=== PATIENT | male | born 2000 | race African-American/Black ===

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

== ENCOUNTER 2019-08-17 21:24 | Emergency (ER) | payer BC, MEDICAID ==
[~2019-08-17] VITALS: Ht 167.6 cm; Wt 68.2 kg
[~2019-08-17 21:24] MED LIST changes: -PALI1.5T2 PO; -TRAZ-218 PO; +TRAZ-251 PO
[2019-08-17] MEDS ORDERED: HYDR-3717 PO (21:45)
[2019-08-17] MEDS ORDERED: ARIP5TAB60 PO (21:45)
[2019-08-17] MEDS ORDERED: DIVA500T9 PO (21:45)
[2019-08-17 22:03] LABS: BASOPHILS % (AUTO) 0.4 % (0-1); EOSINOPHILS # (AUTO) 0.1 X10'3 (0-0.9); EOSINOPHILS % (AUTO) 0.7 % (0-6); HEMATOCRIT 49.7 % (42.0-52.0); HEMOGLOBIN 16.6 g/dl (14.0-17.9); LYMPHOCYTES % (AUTO) 23.5 % (21-51); MEAN CORPUSCULAR HEMOGLOBIN 30.6 PG (27.0-31.0); MEAN CORPUSCULAR HGB CONC 33.3 g/dL (33.0-36.5); MEAN CORPUSCULAR VOLUME 91.8 FL (78-98); MEAN PLATELET VOLUME 9.7 FL (7.4-10.4); MONOCYTES # (AUTO) 0.6 X10'3 (0-0.9); MONOCYTES % (AUTO) 7.5 % (2-12); NEUTROPHILS # (AUTO) 5.8 X10'3 (1.8-7.7); NEUTROPHILS % (AUTO) 67.9 % (42-75); PLATELET COUNT 164 X10'3 (140-440); RED BLOOD COUNT 5.41 X10'6 (4.70-6.10); RED CELL DISTRIBUTION WIDTH 13.7 % (11.5-14.5); WHITE BLOOD COUNT 8.5 X10'3 (4.5-11.0)
[2019-08-17 22:16] LABS: ALANINE AMINOTRANSFERASE 11 U/L (12-78); ALBUMIN 4.1 G/DL (3.4-5.0); ALBUMIN/GLOBULIN RATIO 1.3 (1.1-1.5); ALKALINE PHOSPHATASE 97 IU/L (20-180); ANION GAP 7 (8-16); ASPARTATE AMINO TRANSFERASE 15 U/L (10-37); BILIRUBIN,TOTAL 0.3 MG/DL (0.1-1.0); BLOOD UREA NITROGEN 12 MG/DL (7-18); BUN/CREATININE RATIO 10.8 (5.4-32.0); CALCIUM 9.1 MG/DL (8.5-10.1); CHLORIDE 109 MMOL/L (99-107); CREATININE 1.11 MG/DL (0.60-1.10); GLUCOSE 105 MG/DL (70-104); SODIUM 146 MMOL/L (135-145); TOTAL CARBON DIOXIDE 30.2 MMOL/L (24-32); TOTAL PROTEIN 7.2 G/DL (6.4-8.2); eGFR > 90 ML/MIN
[2019-08-17 22:22] LABS: ETHANOL < 0.010 GM/DL (0.0-0.010)
--- NOTE | 2019-08-17 23:00 | NUR ---
Kirk Loya-Director-[phone]
[2019-08-17 23:13] LABS: CLARITY,URINE CLEAR (Clear); COLOR,URINE YELLOW (Yellow); GLUCOSE, URINE NEGATIVE (Neg); KETONES,URINE TRACE mg/dl (Neg); LEUKOCYTE ESTERASE ,URINE NEGATIVE (Neg); NITRITES, URINE NEGATIVE (Neg); OCCULT BLOOD,URINE NEGATIVE (Neg); PROTEIN,URINE 100 mg/dl (Neg)
[2019-08-17 23:18] LABS: UA COLLECTION TYPE CLN CATCH MIDSTREAM
[2019-08-17 23:19] LABS: BACTERIA,URINE NONE SEEN /HPF (Neg); MUCUS STRANDS MANY /LPF (Neg); RBC,URINE 0-2 /HPF (0-2); SQUAMOUS EPITHELIAL CELL,UR FEW /LPF (FEW); WBC,URINE 0-4 /HPF (0-4)
[2019-08-17 23:26] LABS: URINE AMPHETAMINE SCREEN NEGATIVE (Neg); URINE BARBITUATE SCREEN NEGATIVE (Neg); URINE BENZODIAZEPINES SCREEN NEGATIVE (Neg); URINE CANNABINOID SCREEN NEGATIVE (Neg); URINE COCAINE SCREEN NEGATIVE (Neg); URINE METHADONE SCREEN NEGATIVE (Neg); URINE OPIATE SCREEN NEGATIVE (Neg); URINE PHENCYCLIDINE SCREEN NEGATIVE (Neg)
[2019-08-17] MEDS ORDERED: traZODone 50mg tablet PO SCH (23:43)
[2019-08-17] MEDS ORDERED: aripiprazole 5mg tablet PO SCH (23:43)
[2019-08-17] MEDS ORDERED: divalproex sodium 250mg tablet PO SCH (23:47)
--- NOTE | 2019-08-18 00:26 | NUR ---
relieving RN for break, pt is resting quietly on bed, gave pt pitcher of ice water, pt was compliant with taking PO meds
--- NOTE | 2019-08-18 01:25 | NUR ---
Pt is sleeping, no s/s of distress noted.
--- NOTE | 2019-08-18 02:27 | NUR ---
Pt is sleeping, no s/s of distress noted. rr unlabored.
--- NOTE | 2019-08-18 03:41 | NUR ---
Pt is sleeping, no s/s of distress noted. rr unlabored.
--- NOTE | 2019-08-18 05:09 | NUR ---
Pt continues to sleep, rr unlabored, no s/s of distress noted.
--- NOTE | 2019-08-18 07:03 | NUR ---
Sleeping laying on back respiration unlabored
[2019-08-18] MEDS ORDERED: hydrOXYzine 10 MG tablet PO SCH (08:00)
--- NOTE | 2019-08-18 08:08 | NUR ---
Patient done eating breakfast now laying back down asleep
--- NOTE | 2019-08-18 08:54 | NUR ---
Patient is talking with [facility] worker
[2019-08-18 09:24] VITALS: BP 125/65
--- NOTE | 2019-08-18 09:31 | NUR ---
laying in bed
--- NOTE | 2019-08-18 10:02 | NUR ---
laying in bed
== END 2019-08-18 10:55 | disposition home or self-care (01) ==
LOC: ER 21:24
DX: F25.0 Schizoaffective disorder, bipolar type (principal); F41.9 Anxiety disorder, unspecified; Z79.899 Other long term (current) drug therapy
CPT/HCPCS: 36415; 80053; 80305; 80320; 81001; 84443; 85025; 99284

== ENCOUNTER 2019-12-03 15:47 | Emergency (ER) | payer BC, MEDICAID ==
[~2019-12-03] VITALS: Ht 170.2 cm; Wt 68.2 kg
[~2019-12-03 15:47] MED LIST changes: +ARIP5TAB60 PO; +DIVA500T9 PO; +HYDR-3717 PO
[2019-12-03 16:35] LABS: CLARITY,URINE CLEAR (Clear); COLOR,URINE YELLOW (Yellow); GLUCOSE, URINE NEGATIVE (Neg); KETONES,URINE TRACE mg/dl (Neg); LEUKOCYTE ESTERASE ,URINE NEGATIVE (Neg); NITRITES, URINE NEGATIVE (Neg); OCCULT BLOOD,URINE NEGATIVE (Neg); PROTEIN,URINE 100 mg/dl (Neg)
[2019-12-03 16:39] LABS: UA COLLECTION TYPE VOIDED
[2019-12-03 16:42] LABS: BACTERIA,URINE NONE SEEN /HPF (Neg); CAL OXALATE CRYSTALS 2+ /HPF (NEGATIVE); MUCUS STRANDS FEW /LPF (Neg); RBC,URINE NONE SEEN /HPF (0-2); SQUAMOUS EPITHELIAL CELL,UR NONE SEEN /LPF (FEW); WBC,URINE NONE SEEN /HPF (0-4)
[2019-12-03 16:47] LABS: URINE AMPHETAMINE SCREEN NEGATIVE (Neg); URINE BARBITUATE SCREEN NEGATIVE (Neg); URINE BENZODIAZEPINES SCREEN NEGATIVE (Neg); URINE CANNABINOID SCREEN NEGATIVE (Neg); URINE COCAINE SCREEN NEGATIVE (Neg); URINE METHADONE SCREEN NEGATIVE (Neg); URINE OPIATE SCREEN NEGATIVE (Neg); URINE PHENCYCLIDINE SCREEN NEGATIVE (Neg)
[2019-12-03 16:56] LABS: BASOPHILS # (AUTO) 0.1 X10'3 (0-0.2); EOSINOPHILS # (AUTO) 0.1 X10'3 (0-0.9); EOSINOPHILS % (AUTO) 0.6 % (0-6); HEMATOCRIT 52.3 % (42.0-52.0); LYMPHOCYTES # (AUTO) 2.6 X10'3 (1.1-4.8); LYMPHOCYTES % (AUTO) 28.5 % (21-51); MEAN CORPUSCULAR HEMOGLOBIN 30.4 PG (27.0-31.0); MEAN CORPUSCULAR HGB CONC 34.4 g/dL (33.0-36.5); MEAN CORPUSCULAR VOLUME 88.4 FL (78-98); MEAN PLATELET VOLUME 9.9 FL (7.4-10.4); MONOCYTES # (AUTO) 1.2 X10'3 (0-0.9); NEUTROPHILS # (AUTO) 5.2 X10'3 (1.8-7.7); NEUTROPHILS % (AUTO) 56.9 % (42-75); PLATELET COUNT 168 X10'3 (140-440); RED BLOOD COUNT 5.92 X10'6 (4.70-6.10); RED CELL DISTRIBUTION WIDTH 13.7 % (11.5-14.5); WHITE BLOOD COUNT 9.1 X10'3 (4.5-11.0)
--- NOTE | 2019-12-03 17:00 | NUR ---
resting in bed
--- NOTE | 2019-12-03 17:00 | NUR ---
Per Cindy DELEON, "lab called back with a Hgb of 18.0, I will let Coy (MARYBETH) know."
[2019-12-03] MEDS ORDERED: normal saline 1000ML IV soln IVB ONE (17:05)
[2019-12-03 17:12] LABS: ALANINE AMINOTRANSFERASE 46 U/L (12-78); ALBUMIN 4.8 G/DL (3.4-5.0); ALBUMIN/GLOBULIN RATIO 1.3 (1.1-1.5); ALKALINE PHOSPHATASE 90 IU/L (20-180); ANION GAP 6 (8-16); ASPARTATE AMINO TRANSFERASE 23 U/L (10-37); BILIRUBIN,TOTAL 0.6 MG/DL (0.1-1.0); BLOOD UREA NITROGEN 18 MG/DL (7-18); BUN/CREATININE RATIO 15.5 (5.4-32.0); CHLORIDE 103 MMOL/L (99-107); CREATININE 1.16 MG/DL (0.60-1.10); GLUCOSE 96 MG/DL (70-104); SODIUM 142 MMOL/L (135-145); TOTAL CARBON DIOXIDE 33.1 MMOL/L (24-32); TOTAL PROTEIN 8.4 G/DL (6.4-8.2); eGFR > 90 ML/MIN
--- NOTE | 2019-12-03 17:12 | NUR ---
pt was nervous about getting blood drawn, I explained to pt that the fastest route out of here was to give urine and blood. semiconductor processing technician was able to explain to the patient the process and get him comfortable with giving blood.
[2019-12-03 17:20] LABS: ETHANOL < 0.010 GM/DL (0.0-0.010)
--- NOTE | 2019-12-03 17:50 | NUR ---
MARYBETH ROMERO AT BEDSIDE TALKING WITH PT.
--- NOTE | 2019-12-03 18:00 | NUR ---
resting in bed
--- NOTE | 2019-12-03 18:30 | NUR ---
Bolus still infusing. Will continue to monitor.
--- NOTE | 2019-12-03 19:00 | NUR ---
Pt requested to use phone. Pt seemed to get upset while on the phone. Phone use discouraged at this time.
--- NOTE | 2019-12-03 20:00 | NUR ---
Pt awake in bed, resting quietly.
[2019-12-03] MEDS ORDERED: aripiprazole 5mg tablet PO SCH (21:00)
[2019-12-03] MEDS ORDERED: divalproex sod 250mg ER (24-hour) tablet PO SCH (21:00)
[2019-12-03] MEDS ORDERED: traZODone 50mg tablet PO SCH (21:00)
--- NOTE | 2019-12-03 21:00 | NUR ---
Pt resting quietly, respirations normal, no s/s of distress.
--- NOTE | 2019-12-03 22:00 | NUR ---
Pt resting quietly, respirations normal, no s/s of distress.
--- NOTE | 2019-12-03 22:45 | NUR ---
Packet faxed to [facility].
--- NOTE | 2019-12-03 23:49 | NUR ---
Pt resting quietly, respirations normal, no s/s of distress.
--- NOTE | 2019-12-04 01:24 | NUR ---
Pt resting quietly, respirations normal, no s/s of distress.
--- NOTE | 2019-12-04 02:59 | NUR ---
Pt resting quietly, respirations normal, no s/s of distress.
--- NOTE | 2019-12-04 05:20 | NUR ---
Pt resting quietly, respirations normal, no s/s of distress.
[2019-12-04 05:57] VITALS: BP 121/59
[2019-12-04] MEDS ORDERED: hydrOXYzine 10 MG tablet PO SCH (08:00)
--- NOTE | 2019-12-04 09:27 | NUR ---
YOVANA Rn with patient for interview
--- NOTE | 2019-12-04 09:46 | NUR ---
Breaking primary RN, pt just ambulated back to bed from bathroom, no needs at this time, calm
== END 2019-12-04 12:02 ==
LOC: ER 15:47
DX: E86.0 Dehydration (principal); R45.851 Suicidal ideations; F41.9 Anxiety disorder, unspecified; F31.9 Bipolar disorder, unspecified; F20.9 Schizophrenia, unspecified; Z79.899 Other long term (current) drug therapy
CPT/HCPCS: 36415; 80053; 80305; 80320; 81001; 84443; 85025; 96360; 99285; J7030